=== PATIENT | female | born 1980 | race Caucasian/White ===

== ENCOUNTER 2017-12-10 00:40 | Emergency (ER) | payer OTHER ==
[2017-12-10] MEDS ORDERED: carBAMazepine TAB(*) 200 MG PO ONE (01:12)
[2017-12-10 01:36] VITALS: BP 106/69
--- NOTE | 2017-12-11 23:38 | ED ---
Diane Gotti Julia, scribed for Richi Mora MD on 12/10/17 at 0058 . Throat Pain/Nasal Congestion - HPI Summary HPI Summary: This patient is a 37 year old F presenting to [facility] with a chief complaint of left ear pain at 21:30. Patient rates the pain 7/10 in severity. Pain described as sudden shocks. Patient has similar symptoms intermittently for the past year , but has been more frequent in the past two weeks. Flare ups typically last a few hours to a day and then resolves. Pain is typically managed by ibuprofen but has not helped today. Her primary physician is aware of these symptoms but is unsure what is causing her pain. - History of Current Complaint Chief Complaint: EDEarPain Time Seen by Provider: 12/10/17 00:52 Hx Obtained From: Patient Onset/Duration: Sudden Onset, Lasting Hours Severity: Severe Associated Signs And Symptoms: Positive: Negative - Allergies/Home Medications Allergies/Adverse Reactions: Allergies Allergy/AdvReac Type Severity Reaction Status Date / Time No Known Allergies Allergy Verified 12/10/17 00:45 Home Medications: Home Medications NK [No Home Medications Reported] 12/10/17 [History Confirmed 12/10/17] PMH/Surg Hx/FS Hx/Imm Hx Endocrine/Hematology History: Denies: Hx Diabetes Cardiovascular History: Denies: Hx Hypertension - Immunization History Date of Tetanus Vaccine: UTD Date of Influenza Vaccine: unk Infectious Disease History: No Infectious Disease History: Denies: Traveled Outside the [place] in Last 30 Days - Family History Known Family History: Positive: Cardiac Disease - Social History Occupation: Employed Full-time Alcohol Use: Occasionally Substance Use Type: Reports: None Smoking Status (MU): Heavy Every Day Tobacco Smoker Review of Systems Positive: Ear Ache All Other Systems Reviewed And Are Negative: Yes Physical Exam - Summary Physical Exam Summary: Appearance: Well-appearing, Well-nourished, lying in bed comfortably Skin: Warm, dry, no obvious rash Eyes: sclera anicteric, no conjunctiva pallor ENT: mucous membranes moist, pharynx appears normal, focal tenderness just anterior to the left ear overlying the area to the TMJ Neck: Supple, nontender Respiratory: Clear to auscultation, no signs of respiratory distress Cardiovascular: Normal S1, S2. No murmurs. Normal distal pulses in tibial and radial bilaterally. Abdomen: Soft, nontender, normal active bowel sounds present Musculoskeletal: Normal, Strength/ROM Intact Neurological: A&Ox3, awake and alert, mentation is normal, speech is fluent and appropriate Psychiatric: affect is normal, does not appear anxious or depressed Triage Information Reviewed: Yes Vital Signs On Initial Exam: Initial Vitals Temp Pulse Resp BP Pulse Ox 98.0 F 107 16 124/92 98 12/10/17 00:42 12/10/17 00:42 12/10/17 00:42 12/10/17 00:42 12/10/17 00:42 Vital Signs Reviewed: Yes Diagnostics - Vital Signs Vital Signs Temp Pulse Resp BP Pulse Ox 12/10/17 00:42 98.0 F 107 16 124/92 98 - Laboratory Lab Statement: Any lab studies that have been ordered have been reviewed, and results considered in the medical decision making process. EENT Course/Dx - Diagnoses Provider Diagnoses: Trigeminal neuralgia of left side of face Discharge - Sign-Out/Discharge Documenting (check all that apply): Discharge/Admit/Transfer - Discharge Plan Condition: Good Disposition: HOME Prescriptions: carBAMazepine TAB(*) [Tegretol TAB(*)] 200 mg PO BID #90 tab Patient Education Materials: Trigeminal Neuralgia (ED) Referrals: Sandra Hoang MD [Medical Doctor] - Brennan KENT,Cipriano Samano [Primary Care Provider] - Additional Instructions: I am suspicious that you may have trigeminal neuralgia. This entity is very difficult to treat as the usual pain medications typically have little to no effect on the pain. I have prescribed carbamazepine (tegretol), which is generally considered first line treatment. Since your attacks occur randomly and don't last long it may be hard to figure out the proper dose, but the maximum dose can be up to 800 mg twice daily. It would be reasonable to get up to perhaps 400 mg twice daily and hold there, and if you have another attack start ramping up the dose again. If you are carrie, taking a lower dose may keep the attacks away or at least make them less severe when they come. It would also be useful to see a neurologist about this, as some of your symptoms are a bit atypical and you might need further evaluation to confirm the diagnosis and exclude other things that can present similarly. - Billing Disposition and Condition Condition: GOOD Disposition: HOME The documentation as recorded by the scribe, Roetzer,Pretty accurately reflects the service I personally performed and the decisions made by me, Richi Mora MD.
== END 2017-12-10 01:35 | disposition home or self-care (01) ==
LOC: ED 00:40
DX: G50.0 Trigeminal neuralgia (principal); F17.200 Nicotine dependence, unspecified, uncomplicated
CPT/HCPCS: 99282; A9270-GY

== ENCOUNTER → 2018-02-14 07:09 | Day surgery (SDC) | payer OTHER ==
[~2018-02-14 07:09] MED LIST: Buffered Lidocaine 0.9% SYRIN* 5 ML/SYR SYRINGE INTRADERM ONE; Bupivacaine 0.25% SDV PF* 10 ML VIAL INJ ONE; Ketorolac INJ* 30 MG/ML 1 ML VIAL ONE; Lidocaine 1% MPF wEPI 200,000* 30 ML SDV ONE; Lidocaine 2.5%/Prilocain 2.5%* 5 GM TUBE ONE; Midazolam* 1 MG/ML 2 ML VIAL (2 MG) ONE; Naloxone* 0.4 MG/ML 1 ML VIAL IV PRN; Ondansetron INJ* 2 MG/ML VIAL IV PRN; Propofol* 10 MG/ML 20 ML BTL IV PUSH ONE; ceFAZolin 2 GM PREMIX (*) 2 GM/50 ML BAG IVPB ONE; fentaNYL* 50 MCG/ML 2 ML VIAL (100 MCG VIAL) IV PRN; fentaNYL* 50 MCG/ML 2 ML VIAL (100 MCG VIAL) ONE
--- NOTE | 2018-02-14 09:13 | RAD ---
PROCEDURE: Mammographic needle/wire localization of the left breast PREOPERATIVE DIAGNOSIS: Atypical ductal hyperplasia POSTOPERATIVE DIAGNOSIS: Same COMPARISONS: January 21, 2018 ROLLED GLASS CROSSCUTTER: Demario Taylor MD ANESTHESIA: Local anesthesia with 1% lidocaine without epinephrine FLUOROSCOPY TIME: None CONTRAST: None PROCEDURAL NARRATIVE: The procedure was explained to the patient who indicated understanding. Written and verbal informed consent was obtained. An opportunity was given to ask and answer questions. A timeout was performed. The patient was prepped and draped in the usual sterile fashion. Using mammographic guidance, a needle/wire localization system was advanced to the target lesion in the left breast. Once position was confirmed, the needle was removed using pin pull technique. Post localization mammography was performed. The wound was dressed and the wire was secured. FINDINGS: Post localization mammography demonstrates the proximal clip in the left posterior outer breast with the neck of the hookwire in close proximity to the clip. SPECIMENS: Pending COMPLICATIONS: None DISPOSITION: The patient tolerated the procedure well, without complications during or immediately following the procedure. The patient was sent to the surgical suite in good, stable condition. IMPRESSION: TECHNICALLY SUCCESSFUL, UNCOMPLICATED, NEEDLE-WIRE LOCALIZATION OF THE LEFT BREAST.
[2018-02-14 11:17] VITALS: BP 121/75
--- NOTE | 2018-02-14 21:56 | OP ---
CC: Micky Dorantes MD; Dr. Cipriano Amin * DATE OF OPERATION: 02/14/18 - [facility] DATE OF : 80 SURGEON: Micky Dorantes MD ANESTHESIOLOGIST: Dr. Reynolds. ANESTHESIA: LMAC anesthesia. PRE-OP DIAGNOSIS: Microcalcification to the left breast. POST-OP DIAGNOSIS: Microcalcification to the left breast. OPERATIVE PROCEDURE: Needle localizing left breast excision. DESCRIPTION OF PROCEDURE: The patient was supine on the operating room table after adequate intravenous sedation, compression stocking, Jorge Hugger warmer, and intravenous antibiotics. The left breast was prepped with antiseptic, draped in sterile fashion. Local infiltrative anesthesia was administered. Approximately 4 to 5 cm incision was created and a piece of breast tissue approximately 3 x 3 x 4 cm in size was removed, marked with usual localizing suture and sent to x-ray which confirmed excision of the appropriate area. Hemostasis was obtained using electrocautery and the incision closed with 3-0 and 5-0 Vicryl followed by Steri-Strips. She tolerated the procedure well, is awakened, and brought to recovery in good condition. No complications. No drains. Pathologic specimen as above. Sponge and instrument counts correct. Estimated blood loss 10 mL. [id number]/[facility] #: [id number] MTDD
== END | disposition home or self-care (01) ==
LOC: SDS 07:09
PROVIDERS: ATTEND Surgery
DX: D05.12 Intraductal carcinoma in situ of left breast (principal); Z72.0 Tobacco use; Z80.3 Family history of malignant neoplasm of breast
CPT/HCPCS: 88307; 88341; 88342; 88360; A9270-GY; J0690; J1885; J2001; J2250; J2704; J3010; J3490

== ENCOUNTER 2018-08-15 05:47 | Observation (INO) | payer OTHER ==
--- NOTE | 2018-08-02 16:26 | HP ---
CC: Dr. Cipriano Amin; Dr. Solorio * PREOPERATIVE HISTORY AND PHYSICAL: DATE OF ADMISSION: 08/15/18 This patient is scheduled for same-day surgery with overnight extension, on . DATE OF PREOPERATIVE HISTORY AND PHYSICAL EXAMINATION: 08/02/18 ATTENDING SURGEON: Dr. Micky Dorantes * (dictated by Katherine Hannon NP). CHIEF COMPLAINT: Left breast cancer. HISTORY OF PRESENT ILLNESS: The patient is a 37-year-old female who first consulted with Dr. Dorantes when she had an abnormal mammogram. She had bilateral areas of concern and underwent bilateral stereotactic biopsies. The right breast biopsy was benign and the left breast biopsy showed atypical ductal hyperplasia. She then underwent needle localization excision of the left breast lesion on 02/14/[address] Dorantes and this revealed multifocal DCIS. The patient had a consultation with Dr. Lowry who recommended left mastectomy. BRCA testing was negative. The patient requested a prophylactic right mastectomy and immediate reconstruction by Dr. Solorio. Her mother of triple-negative breast cancer at age 55. [address] Dorantes has examined the patient and reviewed the above findings with her and has recommended left mastectomy and as requested by the patient, prophylactic right mastectomy. He described the nature of the surgical procedures, the relevant risks and benefits, and the patient will then undergo immediate reconstruction by Dr. Solorio. I reviewed the typical postoperative care and recovery and the patient has seen Dr. Solorio preoperatively as well. The patient has had a chance to ask questions and stated that she understands the information and is satisfied with the answers given to her questions. She will sign surgical consent on the day of surgery. PAST MEDICAL HISTORY: Generally healthy. No acute or chronic conditions. PAST SURGICAL HISTORY: Needle localization excision of the left breast cancer, 02/14/18; tubal ligation about 15 years ago. OBSTETRIC HISTORY: 3, para 3. She plans to consult with her primary care provider for update of Pap smear. Last menstrual period started 07/23/18 and she is status post tubal ligation. MEDICATIONS: ProAir RespiClick 2 puffs 4 times a day p.r.n. She has not needed to use that recently. ALLERGIES: No known drug allergies. FAMILY HISTORY: Mother of triple-negative breast cancer at age 55. She reports that some of her relatives are diabetic. 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 She is and lives with her daughter; she drinks alcohol socially and denies the use of any other substances. REVIEW OF SYSTEMS: Constitutional: No fevers, chills, excessive fatigue, or weight loss. Endocrine: No diabetes or thyroid disease. Hematologic: No easy bruising or bleeding. No history of blood transfusions. Breasts: As described in history of present illness. Respiratory: She quit smoking, . She denies any dyspnea on exertion or chronic cough. Cardiovascular: No anginal chest pain or chest pressure. Gastrointestinal: No nausea, vomiting, diarrhea, GI bleeding, constipation, or change in bowel habits. Genitourinary: No dysuria. Musculoskeletal: No joint or back pain. Integumentary: No chronic rashes or skin changes. Neurologic: No headache or blurred vision. General: No previous anesthesia complications. No history of deep venous thrombosis or pulmonary embolism. PHYSICAL EXAMINATION GENERAL SURVEY: The patient is a 37-year-old female, well developed, well nourished, in no acute distress. VITAL SIGNS: Height 68 inches, weight 177 pounds, body mass index 26.9. Blood pressure 116/68, pulse 76 and regular, respiratory rate 18, temperature 97.5 tympanic. SKIN: Warm, dry, intact. HEENT: Benign. NECK: Supple. No cervical lymphadenopathy, no thyromegaly, no supraclavicular lymphadenopathy. BACK: No CVA tenderness. BREASTS: Exam reveals a biopsy site on each breast without any sign of infection; there is a well-healed scar on the lateral inferior aspect of the left breast. There is no nipple discharge. There is no palpable mass on either breast. There is no axillary adenopathy. LUNGS: Breath sounds bilaterally clear and equal. HEART: Regular rate and rhythm. No murmurs or rubs appreciated. ABDOMEN: Reveals scar consistent with laparoscopic tubal ligation, active bowel sounds, soft and nondistended and nontender throughout. No obvious masses or organomegaly. No evidence of umbilical hernia. EXTREMITIES: Warm, without edema or skin ulceration. PELVIC AND RECTAL: Exams deferred. NEUROLOGIC: Alert and oriented x3. Steady gait. IMPRESSION: Left breast cancer. PLAN/RECOMMENDATIONS: Same-day surgery admission to Dr. Dorantes's service on , 08/15/18, for left mastectomy and prophylactic right mastectomy with immediate reconstruction by Dr. Solorio; the patient will likely stay overnight in the hospital as indicated by Dr. Solorio. AUGUSTO HANNON, HOE RUNNER [id number]/[facility] #: [id number] [facility]
[~2018-08-15 05:47] MED LIST changes: -Buffered Lidocaine 0.9% SYRIN* 5 ML/SYR SYRINGE INTRADERM ONE; +Buffered Lidocaine 1% SYRIN* 1 ML/SYRINGE INTRADERM ONE; -Bupivacaine 0.25% SDV PF* 10 ML VIAL INJ ONE; -Ketorolac INJ* 30 MG/ML 1 ML VIAL ONE; -Lidocaine 1% MPF wEPI 200,000* 30 ML SDV ONE; -Lidocaine 2.5%/Prilocain 2.5%* 5 GM TUBE ONE; -Midazolam* 1 MG/ML 2 ML VIAL (2 MG) ONE; -Naloxone* 0.4 MG/ML 1 ML VIAL IV PRN; -Ondansetron INJ* 2 MG/ML VIAL IV PRN; -Propofol* 10 MG/ML 20 ML BTL IV PUSH ONE; -ceFAZolin 2 GM PREMIX (*) 2 GM/50 ML BAG IVPB ONE; -fentaNYL* 50 MCG/ML 2 ML VIAL (100 MCG VIAL) IV PRN; -fentaNYL* 50 MCG/ML 2 ML VIAL (100 MCG VIAL) ONE
[2018-08-15] MEDS ORDERED: Famotidine IV* 10 MG/ML 2 ML (20 mg) IV ONE (06:00)
[2018-08-15] MEDS ORDERED: Lactated Ringers 1000 ML Bag* 1,000 ML IV SCH (06:00)
[2018-08-15] MEDS ORDERED: Gabapentin CAP(*) 300 MG PO ONE (06:00)
[2018-08-15] MEDS ORDERED: Acetaminophen TAB* 325 MG PO ONE (06:00)
[2018-08-15] MEDS ORDERED: Heparin VIAL(*) 5000 UNITS/ML VIAL (FIVE THOUSAND) ONE (06:10)
[2018-08-15] MEDS ORDERED: Gabapentin CAP(*) 300 MG ONE (06:10)
[2018-08-15] MEDS ORDERED: Dexamethasone IV* 4 MG/ML 1 ML (4 MG) ONE (06:10)
[2018-08-15] MEDS ORDERED: Famotidine IV* 10 MG/ML 2 ML (20 mg) ONE (06:10)
[2018-08-15] MEDS ORDERED: Scopolamine 1.5 mg* PATCH ONE (06:11)
[2018-08-15] MEDS ORDERED: Ondansetron INJ* 2 MG/ML VIAL ONE ×2 (06:11→07:09)
[2018-08-15] MEDS ORDERED: Buffered Lidocaine 1% SYRIN* 1 ML/SYRINGE INTRADERM ONE (06:11)
[2018-08-15] MEDS ORDERED: ceFAZolin 2 GM PREMIX in ORs 2 GM/50 ML BAG IVPB ONE (06:11)
[2018-08-15] MEDS ORDERED: Acetaminophen TAB* 325 MG ONE (06:11)
[2018-08-15] MEDS ORDERED: Povidone Iodine 5% OPTH* 30 ML BTL ONE (07:04)
[2018-08-15] MEDS ORDERED: Methylene Blue 0.5 %* 50 MG/10 ML AMP IV ONE (07:04)
[2018-08-15] MEDS ORDERED: Gentamicin ADULT (*) 40 MG/ML VIAL (2 ML VIAL = 80 MG) ONE (07:04)
[2018-08-15] MEDS ORDERED: Bacitracin IV* 50,000 UNITS INJ ONE (07:05)
[2018-08-15] MEDS ORDERED: Bupivacaine 0.5% W/EPI SDV* 30 ML VIAL ONE (07:05)
[2018-08-15] MEDS ORDERED: ceFAZolin 1 GM VIAL(*) ONE (07:05)
[2018-08-15] MEDS ORDERED: fentaNYL* 50 MCG/ML 5 ML VIAL (250 MCG VIAL) ONE (07:09)
[2018-08-15] MEDS ORDERED: Cisatracurium* 2 MG/ML MDV 5 ML ONE (07:09)
[2018-08-15] MEDS ORDERED: Lidocaine 2% PF * 5 ML VIAL ONE ×2 (07:09→08:09)
[2018-08-15] MEDS ORDERED: Propofol* 10 MG/ML 20 ML BTL ONE (07:09)
[2018-08-15] MEDS ORDERED: Midazolam* 1 MG/ML 5 ML VIAL (5 MG) ONE (07:10)
[2018-08-15] MEDS ORDERED: KETAMINE HCL* 50 MG/ML 10 ML VIAL ONE (07:10)
[2018-08-15] MEDS ORDERED: Propofol* 500 MG/50 ML BTL ONE (08:09)
[2018-08-15] MEDS ORDERED: fentaNYL* 50 MCG/ML 2 ML VIAL (100 MCG VIAL) ONE ×6 (08:49→13:22)
--- NOTE | 2018-08-15 09:46 | OP ---
Operative Report - Blank - Operative Report Date of Operation: 08/15/18 Note: Brief Operative Note Preop Dx: DCIS Left breast Postop Dx: same Procedure: Bilateral mastectomies (with reconstruction by Dr. Solorio; see separate note) Anesthesia: GET Surgeon: Jose E Line Erector Apprentice: LEO Daugherty; ANICETO Spencer Fluids: EBL: 50 ml Specimen: right and left breasts Drains: bilateral ARTEMIO drains per Dr. Solorio Findings: dictated
[2018-08-15] MEDS ORDERED: Lactated Ringers 1000 ML Bag* 1,000 ML IV ONE (10:12)
[2018-08-15] MEDS ORDERED: Acetaminophen TAB* 325 MG PO PRN (10:13)
[2018-08-15] MEDS ORDERED: Morphine INJ* 2 MG/ML 1 ML SYRINGE (TWO MG - NEW SYRINGE VERSION) IV PRN ×2 (10:14)
[2018-08-15] MEDS ORDERED: Ondansetron INJ* 2 MG/ML VIAL IV PRN (10:15)
[2018-08-15] MEDS ORDERED: Magnesium Hydroxide LIQ* 30 ML UDC PO PRN (10:17)
[2018-08-15] MEDS ORDERED: HYDROmorphone INJ1* 1 MG/ML SYRINGE ONE (11:22)
[2018-08-15] MEDS ORDERED: Naloxone* 0.4 MG/ML 1 ML VIAL IV PRN (11:25)
[2018-08-15] MEDS ORDERED: DiMENhydriNATE IV* 50 MG/ML VIAL IV PUSH PRN (11:25)
[2018-08-15] MEDS: fentaNYL* 50 MCG/ML 2 ML VIAL (100 MCG VIAL) IV PRN ×3 (12:35→13:23)
[2018-08-15] MEDS ORDERED: Morphine INJ* 2 MG/ML 1 ML SYRINGE (TWO MG - NEW SYRINGE VERSION) ONE (14:21)
[2018-08-15] MEDS: ceFAZolin 1 GM ADVAN(*) 1 GM in NS 0.9% 50 ML* 50 ML IVPB SCH (16:53)
[2018-08-15] MEDS ORDERED: HYDROcodone/ACETAMIN 5-325 MG* 1 TAB ONE (17:48)
[2018-08-15] MEDS: Ketorolac INJ* 30 MG/ML 1 ML VIAL IV PUSH PRN (17:51)
[2018-08-15] MEDS ORDERED: Artificial Tears* 15 ML BTL BOTH EYES PRN (19:30)
--- NOTE | 2018-08-15 20:17 | OP ---
CC: Dr. Solorio; Dr. Cipriano Amin; [facility] * DATE OF OPERATION: 08/15/18 - ROOM #349 DATE OF : 80 SURGEON: Dr. Dorantes. TRACK GREASER: LEO Mann ANESTHESIOLOGIST: Dr. Goodman. ANESTHESIA: General anesthetic. PRE-OP DIAGNOSIS: Ductal carcinoma in situ of left breast. POST-OP DIAGNOSIS: Ductal carcinoma in situ of left breast. OPERATIVE PROCEDURE: Left mastectomy and right prophylactic mastectomy. DESCRIPTION OF PROCEDURE: The patient was supine on the operative table. After adequate general anesthetic, compression stockings, Jorge Hugger warmer, and intravenous antibiotics, the entire chest both sides were prepped with antiseptic, draped in a sterile fashion. Elliptical incisions were created. First the left side was addressed, then the right side. These incisions were marked up by Dr. Solorio, had it signed for his purpose. Subcutaneous mastectomy was carried out on the left side. The specimen was removed and marked with a suture in the axillary tail and sent in formalin for pathologic evaluation. Hemostasis was good. Irrigation was carried out. Dr. Solorio was then called in and he came in to take over that part of the procedure. I then turned my attention to the right chest, where again an elliptical incision was created and the mastectomy carried out in the standard fashion. Again, a suture was used to jonnie axillary tail and it was sent in formalin for pathologic evaluation. Hemostasis was ensured. The irrigation was carried out and this was again turned over to Dr. Solorio and he will dictate his part of the procedure separately. [id number]/[facility] #: [id number] [facility]
[2018-08-15] MEDS: Docusate CAP* 100 MG PO SCH (21:49)
[2018-08-15] MEDS: HYDROcodone/ACETAMIN 5-325 MG* 1 TAB PO PRN (21:49)
[2018-08-16] MEDS: ceFAZolin 1 GM ADVAN(*) 1 GM in NS 0.9% 50 ML* 50 ML IVPB SCH (00:25)
[2018-08-16] MEDS: Ketorolac INJ* 30 MG/ML 1 ML VIAL IV PUSH PRN (00:30)
[2018-08-16] MEDS: Docusate CAP* 100 MG PO SCH (07:42)
[2018-08-16] MEDS: HYDROcodone/ACETAMIN 5-325 MG* 1 TAB PO PRN (07:42)
[2018-08-16 08:33] VITALS: BP 102/56
== END 2018-08-16 11:15 | disposition home or self-care (01) ==
LOC: AA 05:47 → INTOOBSV 05:47 → EDSTATUS 07:30 → SSU 14:38
PROVIDERS: ADMIT Surgery; ATTEND Surgery
DX: C50.912 Malignant neoplasm of unspecified site of left female breast (principal); Z98.51 Tubal ligation status
CPT/HCPCS: 88307; 96372; 96374; 96375; A9270-GY; A9272; C1789; G0378; J0690; J1100; J1170; J1580; J1644; J1885; J2250; J2270; J2405; J2704; J3010; Q4128

== ENCOUNTER 2018-10-22 06:23 | Day surgery (SDC) | payer OTHER ==
[~2018-10-22 06:23] MED LIST changes: +Dexamethasone IV* 4 MG/ML 1 ML (4 MG) IV SLOW PU ONE; +Famotidine IV* 10 MG/ML 2 ML (20 mg) IV ONE; +Lactated Ringers 1000 ML Bag* 1,000 ML IV SCH
[2018-10-22] MEDS ORDERED: Dexamethasone IV* 4 MG/ML 1 ML (4 MG) ONE (07:14)
[2018-10-22] MEDS ORDERED: Ondansetron INJ* 2 MG/ML VIAL ONE ×2 (07:14→07:55)
[2018-10-22] MEDS ORDERED: Heparin VIAL(*) 5000 UNITS/ML VIAL (FIVE THOUSAND) ONE (07:14)
[2018-10-22] MEDS ORDERED: Scopolamine 1.5 mg* PATCH ONE (07:15)
[2018-10-22] MEDS ORDERED: Famotidine IV* 10 MG/ML 2 ML (20 mg) ONE (07:15)
[2018-10-22] MEDS ORDERED: Buffered Lidocaine 1% SYRIN* 1 ML/SYRINGE INTRADERM ONE (07:15)
[2018-10-22] MEDS ORDERED: fentaNYL* 50 MCG/ML 5 ML VIAL (250 MCG VIAL) ONE (07:54)
[2018-10-22] MEDS ORDERED: Propofol* 10 MG/ML 20 ML BTL ONE (07:55)
[2018-10-22] MEDS ORDERED: ceFAZolin VIAL(*) VIAL ONE (07:55)
[2018-10-22] MEDS ORDERED: Midazolam* 1 MG/ML 5 ML VIAL (5 MG) ONE (07:55)
[2018-10-22] MEDS ORDERED: Atracurium* 10 MG/ML 10 ML VIAL ONE (07:55)
[2018-10-22] MEDS ORDERED: Methylene Blue 0.5 %* 50 MG/10 ML AMP IV ONE (07:55)
[2018-10-22] MEDS ORDERED: Gentamicin ADULT (*) 40 MG/ML VIAL (2 ML VIAL = 80 MG) ONE (07:55)
[2018-10-22] MEDS ORDERED: Bupivacaine 0.5% W/EPI SDV* 30 ML VIAL ONE (07:55)
[2018-10-22] MEDS ORDERED: Bacitracin INJECTION* 50,000 UNITS ONE (07:56)
[2018-10-22] MEDS ORDERED: ceFAZolin 2 GM in NS PREMIX(*) 2 GM/100 ML BAG IVPB ONE (07:56)
[2018-10-22] MEDS ORDERED: Povidone Iodine 5% OPTH* 30 ML BTL ONE (08:47)
[2018-10-22] MEDS ORDERED: Lidocaine 2% PF * 5 ML VIAL ONE (08:50)
[2018-10-22] MEDS ORDERED: fentaNYL* 50 MCG/ML 2 ML VIAL (100 MCG VIAL) ONE ×3 (09:22→10:53)
[2018-10-22] MEDS ORDERED: Naloxone* 0.4 MG/ML 1 ML VIAL IV PRN (10:53)
[2018-10-22] MEDS ORDERED: fentaNYL* 50 MCG/ML 2 ML VIAL (100 MCG VIAL) IV PRN (10:53)
[2018-10-22] MEDS ORDERED: HYDROmorphone INJ1* 1 MG/ML SYRINGE IV PRN (10:53)
[2018-10-22] MEDS ORDERED: oxyCODONE/Acetamin 5/325 MG* TAB PO PRN (10:53)
[2018-10-22] MEDS ORDERED: DiMENhydriNATE IV* 50 MG/ML VIAL IV PUSH PRN (10:53)
[2018-10-22 12:34] VITALS: BP 114/77
== END 2018-10-22 13:15 | disposition home or self-care (01) ==
LOC: OR 06:23
PROVIDERS: ATTEND Plastic Surgery
DX: Z42.1 Encounter for breast reconstruction following mastectomy (principal); Z85.3 Personal history of malignant neoplasm of breast; Z87.891 Personal history of nicotine dependence
CPT/HCPCS: 88300; 88305; A9270-GY; C1789; J0690; J1100; J1580; J1644; J2250; J2405; J2704; J3010

== ENCOUNTER 2018-12-31 12:48 | Day surgery (SDC) | payer OTHER ==
[~2018-12-31 12:48] MED LIST changes: -Dexamethasone IV* 4 MG/ML 1 ML (4 MG) IV SLOW PU ONE
[2018-12-31] MEDS ORDERED: ceFAZolin 2 GM PREMIX in ORs 2 GM/50 ML BAG ONE (13:14)
[2018-12-31] MEDS ORDERED: Famotidine IV* 10 MG/ML 2 ML (20 mg) ONE (13:15)
[2018-12-31] MEDS ORDERED: Buffered Lidocaine 1% SYRIN* 1 ML/SYRINGE INTRADERM ONE (13:15)
[2018-12-31 13:51] LABS: Hematocrit 37 % (35-47); Mean Corpuscular HGB Conc 33 g/dL (31-36); Mean Corpuscular Hemoglobin 26 pg (27-31); Mean Corpuscular Volume 80 fL (80-97); Platelet Count 255 10^3/uL (150-450); Red Blood Count 4.58 10^6 /uL (3.70-4.87); Red Cell Distribution Width 16 % (10-15)
[2018-12-31] MEDS ORDERED: fentaNYL* 50 MCG/ML 2 ML VIAL (100 MCG VIAL) ONE (15:23)
[2018-12-31] MEDS ORDERED: Midazolam* 1 MG/ML 5 ML VIAL (5 MG) ONE (15:23)
[2018-12-31] MEDS ORDERED: Bupivacaine 0.25% SDV PF* 10 ML VIAL INJ ONE (15:49)
[2018-12-31] MEDS ORDERED: Nitro 2% OINT* (Nitroglycerin) 1 INCH/PAK PAK TOPICAL ONE (16:00)
[2018-12-31] MEDS ORDERED: DiMENhydriNATE IV* 50 MG/ML VIAL ONE (16:18)
[2018-12-31] MEDS ORDERED: Propofol* 10 MG/ML 20 ML BTL ONE ×2 (16:18→16:48)
[2018-12-31] MEDS ORDERED: Ondansetron INJ* 2 MG/ML VIAL ONE (16:18)
[2018-12-31] MEDS ORDERED: DiMENhydriNATE IV* 50 MG/ML VIAL IV PUSH PRN (16:44)
[2018-12-31] MEDS ORDERED: oxyCODONE TAB* 5 MG TAB PO PRN (16:44)
[2018-12-31] MEDS ORDERED: Naloxone* 0.4 MG/ML 1 ML VIAL IV PRN (16:44)
[2018-12-31] MEDS ORDERED: Acetaminophen TAB* 325 MG PO PRN (16:44)
[2018-12-31 17:58] VITALS: BP 97/58
== END 2018-12-31 18:25 | disposition home or self-care (01) ==
LOC: OR 12:48
PROVIDERS: ATTEND Plastic Surgery
DX: Z42.1 Encounter for breast reconstruction following mastectomy (principal); Z85.3 Personal history of malignant neoplasm of breast; Z87.891 Personal history of nicotine dependence
CPT/HCPCS: 36415; 85027; 86850; 86900; 86901; A9270-GY; J0690; J1240; J2250; J2405; J2704; J3010; J3490

== ENCOUNTER 2019-09-09 13:44 | Emergency (ER) | payer OTHER ==
[2019-09-09] MEDS ORDERED: NS 0.9% 1000 ML** 1,000 ML IV ONE (14:17)
--- NOTE | 2019-09-09 14:24 | ED ---
GI/ HPI - HPI Summary HPI Summary: 39 year old F presenting to [facility] accompanied by family complains of heavy vaginal bleeding since 0000 today 09/09/2019. Hx irregular periods. LNMP 2019. Patient has her period now. She states she has been passing large blood clots this time. She states she woke up at 0430 today 09/09/2019 and her pad was full of blood clots. She states her vaginal bleeding has improved slightly since. Hx heavy vaginal bleeding in the last year. Has not been seen by [facility] LANDSCAPE ARCHITECT for her symptoms. Has not had ultrasounds done for her symptoms. Patient reports mild abdominal cramping. light headedness, dizziness. Patient denies vomiting, diarrhea, back pain, flank pain, pain or burning with urination. The patient rates the pain 1/10 in severity. Symptoms aggravated by change in position. Symptoms alleviated by nothing. Medications reviewed. Not on anticoagulants. No hx uterine fibroids or hx miscarriages. Allergies noted. - History of Current Complaint Chief Complaint: EDVaginalBleeding Time Seen by Provider: 09/09/19 14:17 Stated Complaint: VAGINAL BLEEDING PER PT Hx Obtained From: Patient Onset/Duration: Started Hours Ago - 0000 today 09/09/2019, Still Present Timing: Constant Current Severity: Mild Pain Intensity: 1 Associated Signs and Symptoms: Positive: Negative - vomiting, diarrhea, back pain, flank pain, pain or burning with urination, Other: - mild abdominal cramping, light headedness, dizziness Aggravating Factor(s): Nothing Alleviating Factor(s): Nothing - Allergy/Home Medications Allergies/Adverse Reactions: Allergies Allergy/AdvReac Type Severity Reaction Status Date / Time No Known Allergies Allergy Verified 09/09/19 15:01 Home Medications: Home Medications NK [No Home Medications Reported] 09/09/19 [History Confirmed 09/09/19] PMH/Surg Hx/FS Hx/Imm Hx Endocrine/Hematology History: Denies: Hx Diabetes Cardiovascular History: Denies: Hx Hypertension, Other Cardiovascular Problems/Disorders Respiratory History: Denies: Other Respiratory Problems/Disorders GI History: Denies: Other GI Disorders History: Denies: Other Problems/Disorders Sensory History: Denies: Hx Contacts or Glasses, Hx Hearing Aid Opthamlomology History: Denies: Hx Contacts or Glasses Neurological History: Denies: Other Neuro Impairments/Disorders - Cancer History Hx Chemotherapy: No Hx Radiation Therapy: No - Surgical History Surgery Procedure, Year, and Place: tubal ligation, 2003, [facility] BILATERAL MASTECTOMY-07/2018 Hx Anesthesia Reactions: No - Immunization History Date of Tetanus Vaccine: UTD Date of Influenza Vaccine: unk Infectious Disease History: No Infectious Disease History: Denies: Traveled Outside the [place] in Last 30 Days - Family History Known Family History: Positive: Cardiac Disease - Social History Alcohol Use: Occasionally Alcohol Amount: 3-4 per month Substance Use Type: Reports: None Hx Tobacco Use: Yes Smoking Status (MU): Former Smoker Type: Cigarettes Amount Used/How Often: 1/2 pack a day for 25 yrs Have You Smoked in the Last Year: Yes Review of Systems Positive: Other - mild abdominal cramping. Negative: Vomiting, Diarrhea Positive: other - heavy vaginal bleeding, blood clots. Negative: burning, flank pain, pain Musculoskeletal: Negative - back pain Neurological/Mental Status: Other - light headedness, dizziness All Other Systems Reviewed And Are Negative: Yes Physical Exam - Summary Physical Exam Summary: Constitutional: Well-developed, Well-nourished, Alert. (-) Distressed Skin: Warm, Dry HENT: Normocephalic; Atraumatic Eyes: Conjunctiva normal Neck: Musculoskeletal ROM normal neck. (-) JVD, (-) Stridor, (-) Tracheal deviation Cardio: Rhythm regular, rate normal, Heart sounds normal; Intact distal pulses; The pedal pulses are 2+ and symmetric. Radial pulses are 2+ and symmetric. (-) Murmur Pulmonary/Chest wall: Effort normal. (-) Respiratory distress, (-) Wheezes, (-) Rales Abd: Soft, (-) tenderness, (-) Distension, (-) Guarding, (-) Rebound Musculoskeletal: (-) Edema Lymph: (-) Cervical adenopathy Neuro: Alert, Oriented x3 Psych: Mood and affect Normal Triage Information Reviewed: Yes Vital Signs On Initial Exam: Initial Vitals Temp Pulse Resp BP Pulse Ox 97.6 F 105 18 117/75 100 09/09/19 13:53 09/09/19 13:53 09/09/19 13:53 09/09/19 13:53 09/09/19 13:53 Vital Signs Reviewed: Yes Procedures - Sedation Patient Received Moderate/Deep Sedation with Procedure: No Diagnostics - Vital Signs Vital Signs Temp Pulse Resp BP Pulse Ox 09/09/19 13:53 97.6 F 105 18 117/75 100 - Laboratory Result Diagrams: 09/09/19 14:23 09/09/19 14:23 Lab Statement: Any lab studies that have been ordered have been reviewed, and results considered in the medical decision making process. - Ultrasound Transvaginal Ultrasound Interpretation Completed By: Radiologist - MILDLY ENLARGED UTERUS, OTHERWISE UNREMARKABLE STUDY. ED physician has reviewed this report. GIGU Course/Dx - Course Course Of Treatment: 39 year old F c/o heavy vaginal bleeding since 0000 today . Hx irregular periods. Hx heavy vaginal bleeding. Patient has her period now. Patient notes vaginal bleeding in the ED has lessened since earlier today. Discussed pelvic exam, patient declining at this time. Feels okay for discharge. Given a gynecology referral. Physical exam findings were unremarkable. Bloodwork with no abnormal findings except an Hgb of 11.4, RDW of 16, and BUN/ creatinine ratio of 26.9. Transvaginal US reveals, per radiologist, MILDLY ENLARGED UTERUS, OTHERWISE UNREMARKABLE STUDY. Patient will be discharged home with follow up from Dr. Eagle at the first available appointment. Patient was instructed to return to Emergency Department for new or worsening symptoms. Patient understands and is agreeable to this plan. - Diagnoses Provider Diagnoses: Vaginal bleeding Discharge ED - Sign-Out/Discharge Documenting (check all that apply): Patient Departure - Discharge Plan Condition: Stable Disposition: HOME Forms: *Work Release Referrals: Rian Eagle MD [Medical Doctor] - Additional Instructions: Call Dr. Eagle's office and follow up with him at the first available appointment. Return to the Emergency Department for new or worsening symptoms. - Billing Disposition and Condition Condition: STABLE Disposition: Home - Attestation Statements Document Initiated by Scribe: Yes Documenting Scribe: Criselda Blackman Provider For Whom [facility] is Documenting (Include Credential): Bryan Jackson DO Scribe Attestation: Criselda Gotti, scribed for Bryan Jackson DO on 09/09/19 at 1824. Scribe Documentation Reviewed: Yes Provider Attestation: The documentation as recorded by the Criselda hanna accurately reflects the service I personally performed and the decisions made by me, Bryan Jackson, DO Status of Scribe Document: Viewed
[2019-09-09 14:37] LABS: ABS Basophils 0.1 10^3/ul (0-0.2); ABS Eosinophils 0.3 10^3/ul (0-0.6); ABS Lymphocytes 1.9 10^3/ul (1.0-4.8); ABS Monocytes 0.5 10^3/ul (0-0.8); ABS Neutrophils 4.3 10^3/ul (1.5-7.7); Eosinophil % 3.6 %; Hematocrit 35 % (35-47); Hemoglobin 11.4 g/dL (12.0-16.0); Lymphocyte % 27.5 %; Mean Corpuscular HGB Conc 33 g/dL (31-36); Mean Corpuscular Hemoglobin 27 pg (27-31); Mean Corpuscular Volume 82 fL (80-97); Nucleated Red Blood Cells % 0.1; Platelet Count 230 10^3/uL (150-450); Red Blood Count 4.24 10^6 /uL (3.70-4.87); Red Cell Distribution Width 16 % (10-15)
[2019-09-09 15:07] LABS: HCG Pregnancy < 0.60 mIU/mL
[2019-09-09 15:18] LABS: Albumin 4.5 g/dL (3.2-5.2); Anion Gap 5 mmol/L (2-11); CO2 Carbon Dioxide 25 mmol/L (22-32); Chloride 108 mmol/L (101-111); Potassium 3.7 mmol/L (3.5-5.0); Sodium 138 mmol/L (135-145)
[2019-09-09 15:24] LABS: ALT 11 U/L (7-52); AST 14 U/L (13-39); Albumin/Globulin Ratio 1.9 (1-3); Alkaline Phosphatase 51 U/L (34-104); BUN/Creatinine Ratio 26.9 (8-20); Blood Urea Nitrogen 18 mg/dL (6-24); EGFR African American 118.6 (>60); Globulin 2.4 g/dL (2-4); Glucose 85 mg/dL (70-100); Total Protein 6.9 g/dL (6.4-8.9)
[2019-09-09 17:30] VITALS: BP 122/80
== END 2019-09-09 17:27 | disposition home or self-care (01) ==
LOC: ED 13:44
DX: N93.9 Abnormal uterine and vaginal bleeding, unspecified (principal); Z98.51 Tubal ligation status; Z90.13 Acquired absence of bilateral breasts and nipples; Z87.891 Personal history of nicotine dependence
CPT/HCPCS: 36415; 76830; 80053; 84702; 85025; 86850; 86900; 86901; 96360; 99282